=== PATIENT | male | born 1995 | race Two or more races ===

== ENCOUNTER 2024-03-22 22:44 | Emergency (ER) | payer OTHER ==
[~2024-03-22] VITALS: Ht 185.4 cm; Wt 89.8 kg
[2024-03-22] MEDS ORDERED: ADDERALL 10 MG10 MG PO (23:12)
[2024-03-23] MEDS ORDERED: METOCLOPRAMIDE HCL 5 MG/ML VIAL IM STA (03:04)
[2024-03-23] MEDS ORDERED: PROMETHAZINE HCL 50 MG/ML AMPUL IM STA (03:05)
[2024-03-23] MEDS ORDERED: 0.9 % SODIUM CHLORIDE 1,000 ML IV STA (03:07)
[2024-03-23] MEDS ORDERED: FAMOtidine 10 MG/ML (4ML VIAL) IV PUSH STA (03:07)
[2024-03-23] MEDS ORDERED: PROMETHAZINE HCL 50 MG/ML AMPUL IM ONE (03:10)
[2024-03-23] MEDS ORDERED: HYOSCYAMINE SULFATE 0.125 MG TAB.SUBL ONE (03:11)
[2024-03-23] MEDS ORDERED: METOCLOPRAMIDE HCL 5 MG/ML VIAL ONE (03:11)
[2024-03-23] MEDS ORDERED: FAMOTIDINE/PF 20 MG/2 ML VIAL ONE (03:11)
[2024-03-23] MEDS ORDERED: HYOSCYAMINE SULFATE 0.125 MG TAB.SUBL SL ONE (03:15)
[2024-03-23 03:39] LABS: HEMATOCRIT 51.8 % (39.0-48.0); HEMOGLOBIN 18.2 g/dL (13-16.00); MEAN CELL VOLUME 95.3 fL (80.0-100.00); MEAN CORPUSCULAR HEMOGLOBIN 33.5 pg (27.00-32.0); MEAN CORPUSCULAR HGB CONC 35.2 g/dl (32.0-36.0); PLATELET COUNT 277 K/uL (150-450); RED BLOOD COUNT 5.43 M/uL (4.00-6.00); RED CELL DISTRIBUTION WIDTH 12.1 % (11.5-14.5)
[2024-03-23 03:53] LABS: CALCIUM 9.7 mg/dL (8.5-10.1); CREATININE SERUM 1.93 mg/dL (0.70-1.30); GFR 41.08; POTASSIUM 5.31 mEq/L (3.5-5.1)
== END 2024-03-23 07:15 | disposition home or self-care (01) ==
LOC: ER 22:47
DX: K52.89 Other specified noninfective gastroenteritis and colitis (principal)